=== PATIENT | male | born 1985 | race African-American/Black ===

== ENCOUNTER 2017-04-09 10:11 | Emergency (ER) | payer OTHER ==
[~2017-04-09] VITALS: Ht 185.4 cm; Wt 68.0 kg
--- NOTE | 2017-04-09 10:15 | NUR ---
BIB [employer] IN CUSTODY FOR MEDICAL CLEARANCE C/O VOMITING AND DIARRHEA. A/OX 4, BREATHING EVEN AND UNALBORED. NO SOB. VITALS STABLE. SAFETY AND COMFORT MEASURES IN PLACE. AWAITING MD ORDERS.
[2017-04-09] MEDS ORDERED: ONDANSETRON 4 MG TAB.RAPDIS SL ONE (10:30)
[2017-04-09] MEDS ORDERED: hydrOXYzine HCL INJ 25 MG/ML VIAL IM PRN (10:30)
[2017-04-09] MEDS ORDERED: ONDANSETRON 4 MG TAB.RAPDIS ONE (10:30)
[2017-04-09] MEDS ORDERED: CLONIDINE HCL 0.1 MG TABLET ONE (10:30)
[2017-04-09] MEDS ORDERED: CLONIDINE HCL 0.1 MG TABLET PO ONE (10:30)
--- NOTE | 2017-04-09 10:32 | NUR ---
MEDICATED PATIENT PER MD ORDERS.
--- NOTE | 2017-04-09 10:51 | NUR ---
[facility] IM PER DR. TAVERAS. NOT AVAILABLE IN PHARMACY.
[2017-04-09 11:11] VITALS: BP 116/68
--- NOTE | 2017-04-09 11:12 | NUR ---
Patient discharged in custody in stable condition. Written and verbal after care instructions given. Patient verbalizes understanding of instruction.
== END 2017-04-09 11:12 ==
LOC: ER 10:13
DX: F11.23 Opioid dependence with withdrawal (principal)
CPT/HCPCS: 99283; A4606; A6402; Q0162; Z7610; J3410

== ENCOUNTER 2018-06-03 00:03 | Emergency (ER) | payer OTHER ==
[~2018-06-03] VITALS: Ht 188 cm; Wt 68.0 kg
--- NOTE | 2018-06-03 00:25 | NUR ---
PT ARRIVED TO ED IN CUSTODY FROM THE STREETS COMPLAINING OF LEFT HAND PAIN AND SWELLING FROM INJECTING DRUGS AT 1200. VSS. ALERT AND ORIENTED X3
[2018-06-03] MEDS ORDERED: VANCOMYCIN 1 GM in IV D5W 250 ML IV ONE (01:00)
--- NOTE | 2018-06-03 01:25 | NUR ---
PT TAKEN TO CT ON [facility].
[2018-06-03 01:35] LABS: BASOPHILS % (AUTO) 0.3 % (0.0-2.0); EOSINOPHILS % (AUTO) 1.5 % (0.0-6.0); HEMATOCRIT 38 % (39-51); HEMOGLOBIN 12.1 g/dL (13.5-17.5); LYMPHOCYTES # (AUTO) 2.1 /CMM (0.8-4.8); LYMPHOCYTES % (AUTO) 23.9 % (20.0-44.0); MEAN CORPUSCULAR HGB CONC 32 g/dl (31.0-36.0); MEAN CORPUSCULAR VOLUME 85 fL (80-96); MONOCYTES # (AUTO) 0.6 /CMM (0.1-1.30); MONOCYTES % (AUTO) 6.9 % (2.0-12.0); NEUTROPHILS % (AUTO) 67.4 % (43.0-81.0); PLATELET COUNT (AUTO) 373 /CMM (150-450); RED BLOOD CELL COUNT(AUTO) 4.43 MIL/uL (4.5-6.0); WHITE BLOOD COUNT (AUTO) 8.9 K/uL (4.3-11.0)
--- NOTE | 2018-06-03 01:42 | NUR ---
PT RETURNED FROM CT.
[2018-06-03 01:46] LABS: CALCIUM, SERUM 9.3 mg/dL (8.5-10.1); POTASSIUM 3.8 mmol/L (3.5-5.1)
[2018-06-03] MEDS ORDERED: VANCOMYCIN 1 GM VIAL ONE (01:48)
[2018-06-03 01:51] LABS: ALBUMIN 3.4 g/dL (3.4-5.0); BILIRUBIN,DIRECT 0.1 mg/dL (0.0-0.2); BILIRUBIN,TOTAL 0.9 mg/dL (0.2-1.0); TOTAL PROTEIN, SERUM 7.5 g/dL (6.4-8.2)
--- NOTE | 2018-06-03 02:07 | NUR ---
Patient is resting comfortably in bed with eyes closed. Easily aroused. VSS
[2018-06-03 03:31] VITALS: BP 129/82
--- NOTE | 2018-06-03 03:35 | NUR ---
REPORT GIVEN TO WILL/MO AT [facility].
== END 2018-06-03 03:35 | disposition short-term general hospital (02) ==
LOC: ER 00:05
DX: L03.114 Cellulitis of left upper limb (principal)
CPT/HCPCS: 36415; 73200-TC; 80048-TC; 80076-TC; 83605-TC; 85025-TC; 85730-TC; 87040-TC; A4606; J3370; Z7610

== ENCOUNTER 2018-10-09 02:20 | Emergency (ER) | payer OTHER ==
[~2018-10-09] VITALS: Ht 188 cm; Wt 68.0 kg
--- NOTE | 2018-10-09 02:25 | NUR ---
PT BIB [facility] IN CUSTODY WITH NO GONZALES [employer]. PT HAS A LT ELBOW LACERATION. PT AMBULATED IN TO ER WITH A STEADY GAIT AND IN HANDCUFFS. PT WAS TRESPASSING AND WAS CHASED BY [employer] WHEN PT CUT HIS ELBOW.
[2018-10-09] MEDS ORDERED: TDAP [DIPH/PERTUSSIS/TET] 0.5 ML VIAL IM ONE ×2 (02:30→02:42)
--- NOTE | 2018-10-09 02:30 | NUR ---
[facility] EMT IS AT THE BEDSIDE CLEANING PT'S WOUND.
[2018-10-09] MEDS ORDERED: LIDOCAINE 1%-EPI 1:100,000 20 ML VIAL ONE (02:47)
--- NOTE | 2018-10-09 03:03 | NUR ---
DR GALLAGHER IS AT THE BEDSIDE SUTURING.
--- NOTE | 2018-10-09 03:23 | NUR ---
WOUND WAS CLEANED, TRIPLE ANTIBIOTIC APPLIED, AND COVERED WITH LG BANDAID. Patient discharged to [facility] in custody in stable condition. Written and verbal after care instructions given. Patient verbalizes understanding of instruction. PT AMBULATED OUT WITH A STEADY GAIT. VSS. NAD NOTED.
[2018-10-09 03:26] VITALS: BP 124/75
== END 2018-10-09 03:27 ==
LOC: ER 02:20
DX: S51.012A Laceration without foreign body of left elbow, initial encounter (principal); W19.XXXA Unspecified fall, initial encounter; Y93.89 Activity, other specified; Y92.89 Other specified places as the place of occurrence of the external cause; Y99.8 Other external cause status
CPT/HCPCS: 12002; 99283; J3490; 90715